=== PATIENT | female | born 1955 | race Caucasian/White ===

== ENCOUNTER 2017-08-08 08:54 | Emergency (ER) | payer SELFPAY, OTHER | END 2017-08-08 13:00 | disposition left against medical advice (07) | LOC: FTE 08:54 | DX: Z53.21 Procedure and treatment not carried out due to patient leaving prior to being seen by health care provider (principal) ==

== ENCOUNTER 2018-05-13 10:22 | Emergency (ER) | payer MEDICARE, OTHER ==
[2018-05-13] MEDS: IBUPROFEN 800 MG TAB PO (10:59)
[2018-05-13] MEDS: ONDANSETRON (ODT) 4 MG TAB ODT (10:59)
[2018-05-13] MEDS: HYDROCODONE/APAP (10/325) TAB PO (11:00)
== END 2018-05-13 12:15 | disposition home or self-care (01) ==
LOC: E/R 10:22
DX: S83.91XA Sprain of unspecified site of right knee, initial encounter (principal); I10 Essential (primary) hypertension; X58.XXXA Exposure to other specified factors, initial encounter; Y92.9 Unspecified place or not applicable
CPT/HCPCS: 29505; 73562; 93971; 99284-25